=== PATIENT | female | born 1995 | race Hispanic/Latino ===

== ENCOUNTER 2019-03-02 23:00 | Inpatient (IN) | payer OTHER ==
--- NOTE | 2019-03-02 19:44 | PDOC.LDHP ---
Labor and Delivery H&P Chief complaint: scheduled induction HPI: 23 yo G1 @ 40w5d by 10 week CRL who presents for IOL. Antepartum course complicated by mild anemia, otherwise uncomplicated. Current gestational age (weeks): 40 Due date: 02/25/19 Dating criteria: first trimester ultrasound Grav: 1 Para: 0 Current complications: none Abnormal US findings: No Past Medical History: Anemia Current medications: pre-dimas vitamins, iron Previous surgical history: none Allergies/Adverse Reactions: Allergies Allergy/AdvReac Type Severity Reaction Status Date / Time No Known Allergies Allergy Verified 03/03/19 01:29 Social history: none - Physical Exam Vital signs reviewed and normal: yes General: NAD Heart: RRR Lungs: nonlabored breathing Abdomen: gravid Extremeties: no edema FHT: category 1 (130s, mod jana, +accels, no decels) [place] contractions every: q2-4 min - Vaginal Exam cm dilated: 2 (cephalic, AROM clear ) Effacement: 75% Station: 0 - OB Labs Blood type: O RH: positive Antibody Screen: negative HIV: negative RPR: negative HEPSAg: negative 1 hour GCT: positive 3 hour GTT: wnl GBS: positive Urine drug screen: negative Rubella: immune - Assessment 40w5d IUP EIOL Anemia GBS + - Plan Plan: admit to L&D, cervical ripening, GBS antibiotic prophylaxis, informed consent obtained, anesthesia consult for pain management
[2019-03-03] MEDS ORDERED: NS / Oxytocin 40 units/1000ml 0 ML ONE (01:03)
[2019-03-03 01:31] VITALS: BMI 28.9
[2019-03-03] MEDS ORDERED: Lidocaine 1% (PF) 30 ML VIAL SC PRN (01:40)
[2019-03-03] MEDS ORDERED: NS / Oxytocin 40 units/1000ml 1,000 ML IV PRN (01:40)
[2019-03-03] MEDS ORDERED: HYDROcodone/Acetaminophen 5/325 mg Tablet PO PRN ×2 (01:40→23:28)
[2019-03-03] MEDS ORDERED: Promethazine HCl 25 MG/ML VIAL IM PRN ×2 (01:40→06:28)
[2019-03-03] MEDS ORDERED: Diphenoxylate HCl/Atropine Tablet PO PRN (01:40)
[2019-03-03] MEDS ORDERED: Carboprost 250 MCG/ML AMP IM PRN (01:40)
[2019-03-03] MEDS ORDERED: Methylergonovine 0.2 MG/ML VIAL IM PRN ×2 (01:40→23:28)
[2019-03-03] MEDS ORDERED: Misoprostol 200 MCG TAB PR PRN (01:40)
[2019-03-03] MEDS ORDERED: Butorphanol Tartrate 1 MG/ML VIAL SLOW IVP PRN (01:40)
[2019-03-03] MEDS ORDERED: Ibuprofen 800 MG TAB PO PRN (01:40)
[2019-03-03] MEDS ORDERED: Acetaminophen 500 MG TAB PO PRN (01:40)
[2019-03-03] MEDS ORDERED: Ondansetron PF 4 MG/2 ML Vial IVP PRN ×2 (01:40→06:28)
[2019-03-03] MEDS ORDERED: Penicillin G Potassium 5 MILL.UNITS in Sodium Chloride 0.9% 100 ML IVPB SCH (02:00)
[2019-03-03] MEDS: Misoprostol 100 MCG TAB VAG SCH ×4 (02:25→22:41)
[2019-03-03 02:48] LABS: Hemoglobin 9.8 g/dL (12.0-16.0); Mean Corpuscular HGB CONC 32.7 g/dL (32.0-36.0); Mean Corpuscular Hemoglobin 27.3 pg (27.0-31.0); Mean Corpuscular Volume 83.4 fL (78.0-98.0); Mean Platelet Volume 10.6 fL (7.4-10.4); Platelet Count 214 thou/uL (130-400); RBC Distribution Width 15.6 % (11.5-14.5); Red Blood Cell (RBC) Count 3.59 mill/uL (4.20-5.40); White Blood Cell (WBC) Count 11.1 thou/uL (4.8-10.8)
[2019-03-03 03:26] LABS: HBSAg Index 0.27 S/CO (0-0.99); HIV (1/2) Antibody/Antigen Non-Reactive (NonReactive); Hep B Surf Ag Non-Reactive S/CO (NonReactive)
[2019-03-03] MEDS ORDERED: NS w/ Oxytocin 10 units 500 ML IV SCH (05:00)
[2019-03-03 05:30] LABS: Syphilis Antibody Nonreactive (Nonreactive); Syphilis Antibody Index 0.02 S/CO (<1.00 Non-Reactive)
[2019-03-03] MEDS ORDERED: Fentanyl 4 mcg/Bup 0.1% Cadd 100 ML ONE ×2 (05:52→14:36)
[2019-03-03] MEDS ORDERED: Lidocaine 1.5%/Epinephrine 1:200,000 5 ML AMPUL IJ ONE (05:53)
[2019-03-03] MEDS ORDERED: diphenhydrAMINE 50 MG/ML VIAL IVP PRN (06:28)
[2019-03-03] MEDS ORDERED: Lactated Ringer's 500 ML IV PRN (06:28)
[2019-03-03] MEDS ORDERED: ePHEDrine/0.9% NaCl/PF SYRINGE 50 mg/10 ml SLOW IVP PRN (06:28)
[2019-03-03] MEDS ORDERED: Naloxone HCl 0.4 mg/ml Vial IVP PRN ×2 (06:28)
[2019-03-03] MEDS ORDERED: Eucerin (Mineral Oil/Petrolatum,White) 30 gm Jar TOP PRN (06:28)
[2019-03-03] MEDS ORDERED: Acetaminophen 325 MG TAB PO PRN (06:28)
[2019-03-03] MEDS ORDERED: Communication Order-Pharmacy FS SCH (06:30)
[2019-03-03] MEDS: Lactated Ringer's 1,000 ML IV SCH ×2 (06:36→11:26)
[2019-03-03] MEDS: Fentanyl 4 mcg/Bupivacaine 0.1% Cassette 100 ML EPIDURAL SCH ×2 (06:37→14:47)
[2019-03-03] MEDS: Penicillin G 2.5 MILL.units 2.5 MILL.UNITS in Premix Bag 1 BAG IVPB SCH ×4 (11:25→19:28)
[2019-03-03] MEDS ORDERED: Lidocaine 1% (PF) 30 ML VIAL ONE (21:21)
--- NOTE | 2019-03-03 21:40 | PDOC.OPDEL ---
OB Operative/Delivery Note Delivery Dr/Surgeon: Yesica Urbina DO Pre-Delivery Diagnosis: elective induction Procedure/Post Delivery Dx: spontaneous vaginal delivery Weeks gestation: 40 Anesthesia: epidural - Findings A Sex: male - 1 min: 9 - 5 min: 9 - Additional Findings/Plan Placenta delivered: spontaneous Repaired Obstetrical Laceration: 2nd degree Estimated blood loss: QBL 432 cc Compilations/Other Findings: Infant in cephalic presentation and SUMI position Normal appearing placenta Post delivery plan: routine recovery
[2019-03-03] MEDS ORDERED: Bisacodyl 10 MG SUPP PR PRN (23:28)
[2019-03-03] MEDS ORDERED: NS / Oxytocin 40 units/1000ml 1,000 ML IV SCH (23:28)
[2019-03-03] MEDS ORDERED: Milk Of Magnesia 30 ML UDCUP PO PRN (23:28)
[2019-03-03] MEDS ORDERED: diphenhydrAMINE 25 MG CAP PO PRN (23:28)
[2019-03-03] MEDS ORDERED: Ibuprofen 800 MG TAB PO SCH (23:28)
[2019-03-03] MEDS ORDERED: Benzocaine-Menthol 82.5 ML CAN TOP PRN (23:28)
[2019-03-04] MEDS: Ibuprofen 800 MG TAB PO SCH ×4 (01:41→23:03)
[2019-03-04] MEDS: Lactated Ringer's 1,000 ML IV SCH (01:49)
[2019-03-04] MEDS: Penicillin G 2.5 MILL.units 2.5 MILL.UNITS in Premix Bag 1 BAG IVPB SCH (01:50)
[2019-03-04] MEDS: Misoprostol 100 MCG TAB VAG SCH (01:51)
[2019-03-04] MEDS ORDERED: Lanolin Ointment 7 GM TUBE TOP PRN (05:38)
[2019-03-04 07:37] LABS: Mean Corpuscular HGB CONC 31.6 g/dL (32.0-36.0); Mean Corpuscular Hemoglobin 26.6 pg (27.0-31.0); Mean Corpuscular Volume 84.1 fL (78.0-98.0); Mean Platelet Volume 10.7 fL (7.4-10.4); Platelet Count 185 thou/uL (130-400); RBC Distribution Width 15.8 % (11.5-14.5); Red Blood Cell (RBC) Count 3.39 mill/uL (4.20-5.40); White Blood Cell (WBC) Count 18.9 thou/uL (4.8-10.8)
[2019-03-04] MEDS: Prenatal Vitamin 1 TAB PO SCH (09:11)
[2019-03-04] MEDS: Docusate Calcium (SURFAK) 240 MG CAP PO SCH ×2 (09:11→23:03)
[2019-03-04] MEDS: Ferrous Sulfate 325 MG TAB PO SCH ×2 (09:11→16:19)
--- NOTE | 2019-03-04 09:49 | PDOC.PP ---
Post Progress Note Post Day #: 1 Subjective: doing well today, some latch issues, min lochia PO intake tolerated: yes Flatus: yes Ambulation: yes Vital Signs (12 hours) Temp Pulse Resp BP Pulse Ox 03/04/19 08:04 98.3 F 91 20 114/71 03/04/19 03:55 98.9 F 99 20 131/61 98 03/04/19 00:15 99 03/03/19 23:35 99.3 F 98 18 117/67 99 Weight Weight 174 lb - Physical Examination General: NAD Respiratory: non-labored breathing Abdominal: no distention Fundus firm & at: below umb Neurological: no gross focal deficits Psychiatric: A&Ox3, normal affect Result Diagrams: 03/04/19 06:51 Additional Labs: Post Labs Blood Type O POSITIVE 03/03/19 03:07 Hep Bs Antigen Non-Reactive S/CO (NonReactive) 03/03/19 02:01 (1) Vaginal delivery Code(s): O80 - ENCOUNTER FOR FULL-TERM UNCOMPLICATED DELIVERY Status: Acute - Assessment/Plan PPD1 sp TSVD, doing well, consult ordered. Likely DC tomorrow.
[2019-03-04] MEDS ORDERED: Bupivacaine/Epinephrine 0.25% 30 ML VIAL ONE (10:56)
[2019-03-04 23:12] VITALS: TEMP 98.1
[2019-03-05 07:48] VITALS: BP 128/76
[2019-03-05] MEDS: Prenatal Vitamin 1 TAB PO SCH (07:50)
[2019-03-05] MEDS: Docusate Calcium (SURFAK) 240 MG CAP PO SCH (07:50)
[2019-03-05] MEDS: Ferrous Sulfate 325 MG TAB PO SCH (07:50)
[2019-03-05] MEDS: Ibuprofen 800 MG TAB PO SCH (07:51)
--- NOTE | 2019-03-05 08:17 | PDOC.PP ---
Post Progress Note Post Day #: 2 Subjective: Doing well. Has not seen LC yet, reports improved breast feeding but still desires consult. Minimal lochia and pain. PO intake tolerated: yes Flatus: yes Ambulation: yes Vital Signs (12 hours) Temp Pulse Resp BP Pulse Ox 03/05/19 07:48 98.1 F 88 20 128/76 100 03/04/19 23:05 98.1 F 95 16 119/71 99 Weight Weight 174 lb - Physical Examination General: NAD Cardiovascular: RRR Respiratory: non-labored breathing Abdominal: no distention, appropriately TTP Fundus firm & at: below umbilicus Extremities: negative homans (B) Neurological: no gross focal deficits Psychiatric: A&Ox3, normal affect Result Diagrams: 03/04/19 06:51 Additional Labs: Post Labs Blood Type O POSITIVE 03/03/19 03:07 Hep Bs Antigen Non-Reactive S/CO (NonReactive) 03/03/19 02:01 (1) Anemia Code(s): D64.9 - ANEMIA, UNSPECIFIED Status: Acute Qualifiers: Anemia type: iron deficiency Iron deficiency anemia type: unspecified iron deficiency Qualified Code(s): D50.9 - Iron deficiency anemia, unspecified (2) Vaginal delivery Code(s): O80 - ENCOUNTER FOR FULL-TERM UNCOMPLICATED DELIVERY Status: Acute - Assessment/Plan PPD1 VSSAF LC consult still pending. Otherwise, meeting requirements for d/c when baby ready for d/c and LC done. Continue routine PP care until then. F/U 6 weeks.
== END 2019-03-05 15:20 | disposition home or self-care (01) | DRG 807 ==
LOC: L&D 03-03 00:08 → 3SE 03-03 23:55
PROVIDERS: ADMIT Obstetrics & Gynecology; ATTEND Obstetrics & Gynecology
PROC: 10E0XZZ Delivery of Products of Conception, External Approach (ICD-10-PCS; principal; 2019-03-03)
PROC: 0KQM0ZZ Repair Perineum Muscle, Open Approach (ICD-10-PCS; 2019-03-03)
PROC: 3E033VJ Introduction of Other Hormone into Peripheral Vein, Percutaneous Approach (ICD-10-PCS; 2019-03-03)
DX: O48.0 Post-term pregnancy (principal); Z37.0 Single live birth; Z3A.40 40 weeks gestation of pregnancy; O99.02 Anemia complicating childbirth; D50.9 Iron deficiency anemia, unspecified; O99.824 Streptococcus B carrier state complicating childbirth; O70.1 Second degree perineal laceration during delivery
CPT/HCPCS: 36415; 51702; 85027; 86780; 86850; 86900; 86901; 87340; 87389; J2001; J2540; J2590; J3490